=== PATIENT | male | born 1940 | race Caucasian/White ===

== ENCOUNTER → 2021-12-10 | Outpatient (CLI) | payer MEDICARE ==
[~2021-12-10] MED LIST: ALIVE MENS ENERGY PO; AMLODIPINE BESYL5 MG PO; ATENOLOL50 MG PO; ATORVASTATIN CA20 MG PO; HYDROCHLOROTHIA25 MG PO; LISINOPRIL10 MG PO; OMEPRAZOLE40 MG PO; PROBIOTIC PO
== END ==
LOC: US 11:02
PROVIDERS: ATTEND Otolaryngology
DX: E04.1 Nontoxic single thyroid nodule (principal)
CPT/HCPCS: 76536

== ENCOUNTER → 2021-12-22 | Outpatient (CLI) | payer MEDICARE | LOC: US 10:05 | PROVIDERS: ATTEND Otolaryngology | DX: E04.1 Nontoxic single thyroid nodule (principal) | CPT/HCPCS: 10005; 88172; 88173; 88300; 88305 ==

== ENCOUNTER → 2022-12-15 | Outpatient (REF) | payer SELFPAY ==
[~2022-12-15] MED LIST changes: +IOPAMIDOL 370 MG/ML 100 ML INFUS..BTL INJ ONE; +SODIUM CHLORIDE 0.9% 100 ML ONE
[2022-12-15 13:44] LABS: CREATININE, SERUM 1.14 mg/dL (0.72-1.25)
== END ==
LOC: CT 12:46
PROVIDERS: ATTEND Internal Medicine Interventional Cardiology
DX: R07.9 Chest pain, unspecified (principal); I48.91 Unspecified atrial fibrillation; I25.10 Atherosclerotic heart disease of native coronary artery without angina pectoris; I28.8 Other diseases of pulmonary vessels
CPT/HCPCS: 36415; 71275; 82565; 84520; J7050; Q9967